=== PATIENT | male | born 1955 | race Two or more races ===

== ENCOUNTER 2019-05-08 18:54 | Emergency (ER) | payer BC, MEDICARE ==
[~2019-05-08] VITALS: Ht 165.1 cm; Wt 76.2 kg
[~2019-05-08 18:54] MED LIST: FOSI10TA4 PO; GLIP5TAB12 PO; METF-370 PO; SIMV-8 PO
[2019-05-08 19:06] VITALS: BP 149/84
[2019-05-08] MEDS ORDERED: TRIAMCINOLONE 40MG/ML 1ML VIAL IM ONE (21:30)
[2019-05-08] MEDS ORDERED: ACETAMINOPHEN/CODEINE#3 (300/30mg) TAB PO ONE (22:00)
[2019-05-08] MEDS ORDERED: Acetam/CODEINE 120mg/12mg per 5mL UD PO ONE (22:15)
== END 2019-05-08 22:50 | disposition home or self-care (01) ==
LOC: ER 18:54
DX: J45.909 Unspecified asthma, uncomplicated (principal); Z79.899 Other long term (current) drug therapy
CPT/HCPCS: 93005; 96372; 99283; J3301